=== PATIENT | male | born 1945 | race African-American/Black ===

== ENCOUNTER → 2021-07-23 | Outpatient (CLI) | payer MEDICARE, MEDICAID ==
[~2021-07-23] VITALS: Ht 172.7 cm; Wt 72.6 kg
[~2021-07-23] MED LIST: FUROSEMIDE 20MG/2ML VIAL IVP SCH; FUROSEMIDE 20MG/2ML VIAL ONE; SYSOS EACHEYE
== END | disposition home or self-care (01) ==
LOC: NM 08:43
PROVIDERS: ATTEND Urology
DX: N13.30 Unspecified hydronephrosis (principal); Z79.899 Other long term (current) drug therapy; Z98.890 Other specified postprocedural states
CPT/HCPCS: 78707; A9562; C1893; J1940

== ENCOUNTER 2023-07-12 18:30 | Inpatient (IN) | payer MEDICARE, MEDICAID ==
[~2023-07-12] VITALS: Ht 172.7 cm; Wt 84.6 kg
[~2023-07-12 18:30] MED LIST changes: -FUROSEMIDE 20MG/2ML VIAL IVP SCH; -FUROSEMIDE 20MG/2ML VIAL ONE
[2023-07-12 21:13] LABS: HEMATOCRIT. 22.4 % (42.0-52.0); MEAN CORPUSCULAR HEMOGLOBIN 19.9 pg (28.0-32.0); MEAN CORPUSCULAR HGB CONC 26.4 g/dL (31.0-37.0); MEAN CORPUSCULAR VOLUME 75.5 fL (80.0-94.0); MEAN PLATELET VOLUME 8.9 fl (7.4-10.4); PLATELET 201 x1000/uL (130-400); RED BLOOD CELL COUNT 2.96 mill/uL (4.7-6.1); RED CELL DISTRIBUTION WIDTH 22.4 % (11.6-14.6)
[2023-07-12 21:15] LABS: CHLORIDE 109 mEq/L (98-107); INDEX HEMOLYSI 1 (1-3); INDEX ICTERIC 1 (1-4); INDEX LIPEMIC 1 (1-3); POTASSIUM 3.9 mEq/L (3.5-5.1); SODIUM 140 mEq/L (136-145)
[2023-07-12 21:17] LABS: INR 1.1; PARTIAL THROMBOPLASTIN TIME 27.5 sec (23.4-31.0); PROTHROMBIN TIME 11.3 sec (9.6-11.0)
[2023-07-12 21:26] LABS: ALANINE AMINOTRANSFERASE 19 IU/L (13-61); ALBUMIN 3.1 g/dL (3.4-5.0); ASPARTATE AMINOTRANSFERASE 14 IU/L (15-37); BILIRUBIN TOTAL 0.2 mg/dL (0.1-1.0); CALCIUM 8.4 mg/dL (8.5-10.1); CARBON DIOXIDE 25 mEq/L (21-32); CREATININE 1.2 mg/dL (0.6-1.3); GLUCOSE 124 mg/dL (70-105); NT PRO B-TYPE NATRIURETIC PEP 917 pg/mL (5-125); PROTEIN TOTAL 6.6 g/dL (6.0-8.3); TROPONIN I HIGH SENSITIVITY 11 ng/L (<78); UREA NITROGEN BLOOD 19 mg/dL (7-21)
[2023-07-12 21:40] LABS: HEMOGLOBIN. 5.9 g/dL (14.0-18.0); WHITE BLOOD COUNT 46.1 x1000/uL (4.5-11.0)
[2023-07-12 21:41] LABS: DIFFERENTIAL COMMENT 1
[2023-07-12 22:47] LABS: PLATELET ESTIMATE NORMAL
[2023-07-12 22:48] LABS: ANISOCYTOSIS 3+; MICROCYTOSIS 1+
[2023-07-13] VITALS (13 sets, daily range): BP systolic 117–157; BP diastolic 52–87; PULSE 63–103; RESP 15–22; TEMP 98–99.1
[2023-07-13 00:07] LABS: INDEX HEMOLYSI 1 (1-3); INDEX ICTERIC 1 (1-4); INDEX LIPEMIC 1 (1-3)
[2023-07-13 00:10] LABS: IRON 11 ug/dL (50-175); TOTAL IRON BINDING CAPACITY 323 ug/dL (250-450)
[2023-07-13] MEDS ORDERED: ACETAMINOPHEN 325MG TABLET PO PRN (05:15)
[2023-07-13] MEDS: FERROUS SULFATE 325MG TABLET PO SCH ×3 (08:29→16:58)
[2023-07-13] MEDS: DOCUSATE SODIUM 100MG CAPSULE PO SCH (08:29)
[2023-07-13] MEDS: FOLIC ACID 1MG TABLET PO SCH (08:29)
[2023-07-13] MEDS: PANTOPRAZOLE SODIUM 40 MG/VIAL IV SCH (08:30)
[2023-07-13 09:00] LABS: CLARITY URINE TURBID (CLEAR); COLOR URINE RED (YELLOW); GLUCOSE URINE NEGATIVE (NEGATIVE); KETONES URINE NEGATIVE (NEGATIVE); LEUKOCYTE ESTERASE URINE 3+ (NEGATIVE); NITRITE URINE POSITIVE (NEGATIVE); OCCULT BLOOD URINE 2+ (NEGATIVE); PROTEIN URINE 2+ (NEGATIVE); SPECIFIC GRAVITY URINE 1.011 (1.005-1.030); UROBILINOGEN URINE 0.2 E.U./dL (0.2-1.0)
[2023-07-13 09:24] LABS: RBC URINE TNTC /hpf (0-2)
[2023-07-13 09:27] LABS: WBC URINE 50-100 /hpf (0-2)
[2023-07-13 09:28] LABS: BACTERIA URINE 4+; SQUAMOUS EPITHELIAL CELL URINE NONE SEEN /lpf (RARE/1+); YEAST URINE NONE SEEN
[2023-07-13] MEDS: FUROSEMIDE 40MG/4ML VIAL IVP SCH (10:49)
[2023-07-13 10:56] LABS: MEAN CORPUSCULAR HEMOGLOBIN 21.6 pg (28.0-32.0); MEAN CORPUSCULAR HGB CONC 28.3 g/dL (31.0-37.0); MEAN CORPUSCULAR VOLUME 76.2 fL (80.0-94.0); MEAN PLATELET VOLUME 9.1 fl (7.4-10.4); PLATELET 173 x1000/uL (130-400); RED CELL DISTRIBUTION WIDTH 23.5 % (11.6-14.6); WHITE BLOOD COUNT 34.6 x1000/uL (4.5-11.0)
[2023-07-13 11:11] LABS: DIFFERENTIAL COMMENT 1
[2023-07-13 11:13] LABS: HEMOGLOBIN. 6.3 g/dL (14.0-18.0)
[2023-07-13 11:14] LABS: HEMATOCRIT. 22.1 % (42.0-52.0)
[2023-07-13 14:24] LABS: ANISOCYTOSIS 3+; HYPOCHROMASIA 1+; MICROCYTOSIS 1+; PLATELET ESTIMATE NORMAL
[2023-07-13] MEDS: LORAZEPAM 2MG/ML CPJ IV PRN (19:44)
[2023-07-13] MEDS ORDERED: LACTULOSE 20G/30ML UDC PO PRN (21:00)
[2023-07-14] VITALS (7 sets, daily range): BP systolic 101–137; BP diastolic 50–88; PULSE 61–78; RESP 14–21; TEMP 98–99.2
[2023-07-14 07:26] LABS: HEMATOCRIT. 25.9 % (42.0-52.0); MEAN CORPUSCULAR HGB CONC 28.5 g/dL (31.0-37.0); MEAN CORPUSCULAR VOLUME 77.2 fL (80.0-94.0); MEAN PLATELET VOLUME 9.1 fl (7.4-10.4); PLATELET 191 x1000/uL (130-400); RED BLOOD CELL COUNT 3.36 mill/uL (4.7-6.1); RED CELL DISTRIBUTION WIDTH 23.9 % (11.6-14.6)
[2023-07-14 07:37] LABS: DIFFERENTIAL COMMENT 1
[2023-07-14 07:38] LABS: HEMOGLOBIN. 7.4 g/dL (14.0-18.0)
[2023-07-14 08:27] LABS: INDEX HEMOLYSI 1 (1-3); INDEX ICTERIC 1 (1-4); INDEX LIPEMIC 1 (1-3)
[2023-07-14 08:37] LABS: HAPTOGLOBIN 210 mg/dL (30-200); IRON 23 ug/dL (50-175); LACTATE DEHYDROGENASE 192 IU/L (100-240); TOTAL IRON BINDING CAPACITY 355 ug/dL (250-450)
[2023-07-14] MEDS ORDERED: CEFTRIAXONE 1GM PREMIX 50 ML IV SCH (09:30)
[2023-07-14] MEDS: FERROUS SULFATE 325MG TABLET PO SCH ×3 (09:43→17:50)
[2023-07-14] MEDS: FOLIC ACID 1MG TABLET PO SCH (09:43)
[2023-07-14] MEDS: FUROSEMIDE 40MG/4ML VIAL IVP SCH (09:43)
[2023-07-14] MEDS: DOCUSATE SODIUM 100MG CAPSULE PO SCH (09:43)
[2023-07-14] MEDS: PANTOPRAZOLE SODIUM 40 MG/VIAL IV SCH (09:43)
[2023-07-14] MEDS: CEFTRIAXONE 1,000 MG in DEXTROSE 5% WATER 50 ML IV SCH (10:36)
[2023-07-14] MEDS: CITALOPRAM HYDROBROMIDE 10MG TABLET PO SCH (12:02)
[2023-07-14 14:13] LABS: ANISOCYTOSIS 2+; PLATELET ESTIMATE NORMAL
[2023-07-14 14:14] LABS: MICROCYTOSIS 1+
[2023-07-14] MEDS: LORAZEPAM 2MG/ML CPJ IV PRN (20:19)
[2023-07-14] MEDS ORDERED: ZOLPIDEM TARTRATE 5MG TABLET PO PRN (21:00)
[2023-07-15 00:38] VITALS: BP 122/58; PULSE 68; RESP 19; TEMP 99.1
[2023-07-15 05:55] VITALS: BP 131/97; PULSE 63; RESP 22; TEMP 98.6
[2023-07-15 07:00] LABS: HEMATOCRIT. 24.6 % (42.0-52.0); HEMOGLOBIN. 7.1 g/dL (14.0-18.0); MEAN CORPUSCULAR HEMOGLOBIN 22.1 pg (28.0-32.0); MEAN CORPUSCULAR VOLUME 76.1 fL (80.0-94.0); MEAN PLATELET VOLUME 9.1 fl (7.4-10.4); PLATELET 194 x1000/uL (130-400); RED BLOOD CELL COUNT 3.23 mill/uL (4.7-6.1); RED CELL DISTRIBUTION WIDTH 24.8 % (11.6-14.6)
[2023-07-15 07:18] LABS: CALCIUM 8.1 mg/dL (8.5-10.1); CARBON DIOXIDE 27 mEq/L (21-32); CHLORIDE 109 mEq/L (98-107); INDEX HEMOLYSI 1 (1-3); INDEX ICTERIC 1 (1-4); INDEX LIPEMIC 1 (1-3); POTASSIUM 3.5 mEq/L (3.5-5.1); SODIUM 138 mEq/L (136-145); UREA NITROGEN BLOOD 16 mg/dL (7-21)
[2023-07-15 07:21] LABS: CREATININE 1.1 mg/dL (0.6-1.3); GLUCOSE 84 mg/dL (70-105)
[2023-07-15 07:34] LABS: DIFFERENTIAL COMMENT 1
[2023-07-15 08:00] VITALS: BP 110/53; PULSE 61; RESP 16; TEMP 98.7
[2023-07-15] MEDS: FOLIC ACID 1MG TABLET PO SCH (09:04)
[2023-07-15] MEDS: DOCUSATE SODIUM 100MG CAPSULE PO SCH (09:04)
[2023-07-15] MEDS: PANTOPRAZOLE SODIUM 40 MG/VIAL IV SCH (09:04)
[2023-07-15] MEDS: FUROSEMIDE 40MG/4ML VIAL IVP SCH (09:04)
[2023-07-15] MEDS: CITALOPRAM HYDROBROMIDE 10MG TABLET PO SCH (09:04)
[2023-07-15] MEDS: CEFTRIAXONE 1,000 MG in DEXTROSE 5% WATER 50 ML IV SCH (09:05)
[2023-07-15] MEDS: FERROUS SULFATE 325MG TABLET PO SCH (09:10)
[2023-07-15] MEDS ORDERED: FUROSEMIDE 40MG TABLET PO NR (09:45)
[2023-07-15] MEDS ORDERED: POTASSIUM CHLORIDE 20MEQ TABLET SR PO NR (10:00)
[2023-07-15 11:30] VITALS: BP 136/77; PULSE 66; TEMP 98; O2SAT 98
[2023-07-15 15:35] LABS: ANISOCYTOSIS 4+; MICROCYTOSIS 1+; PLATELET ESTIMATE NORMAL
[2023-07-15 15:36] LABS: HYPOCHROMASIA 1+
== END 2023-07-15 11:44 | disposition home or self-care (01) | DRG 663 ==
LOC: ER 18:30 → 3WST 23:22
PROVIDERS: ADMIT Internal Medicine; ATTEND Internal Medicine
PROC: 30233N1 Transfusion of Nonautologous Red Blood Cells into Peripheral Vein, Percutaneous Approach (ICD-10-PCS; principal; 2023-07-13)
DX: D50.9 Iron deficiency anemia, unspecified (principal); N17.9 Acute kidney failure, unspecified; I27.20 Pulmonary hypertension, unspecified; E44.1 Mild protein-calorie malnutrition; C91.10 Chronic lymphocytic leukemia of B-cell type not having achieved remission; N39.0 Urinary tract infection, site not specified; N40.0 Benign prostatic hyperplasia without lower urinary tract symptoms; R31.9 Hematuria, unspecified; I25.10 Atherosclerotic heart disease of native coronary artery without angina pectoris; E66.9 Obesity, unspecified; E78.5 Hyperlipidemia, unspecified; N18.9 Chronic kidney disease, unspecified; F32.9 Major depressive disorder, single episode, unspecified; M19.90 Unspecified osteoarthritis, unspecified site; G89.29 Other chronic pain; G47.00 Insomnia, unspecified; R31.0 Gross hematuria; Z87.440 Personal history of urinary (tract) infections; Z87.442 Personal history of urinary calculi; Z91.199 Patient's noncompliance with other medical treatment and regimen due to unspecified reason; Z68.28 Body mass index [BMI] 28.0-28.9, adult
CPT/HCPCS: 36415; 76770; 80048; 80053; 81003; 82728; 83010; 83540; 83550; 83615; 83880; 84484; 85025; 85044; 86850; 86880; 86900; 86920; 93005; 93306; 93970; 99285; C9113; J0696; J1940; J2060; J7060; P9016